=== PATIENT | female | born 1955 | race Caucasian/White ===

== ENCOUNTER → 2017-08-10 | Outpatient (CLI) | payer MEDICARE, MEDICAID ==
[~2017-08-10] MED LIST: AUGMENTIN XR 101 TER PO; NORCO 325 MG-51 TAB PO
--- NOTE | 2017-08-16 08:31 | RADIOLOGY REPORT PS360 ---
DIG MAMM-SCREEN NICK W/CAD CAD Screening COMPARISON: Digital mammograms 07/16/2015 and digital mammograms 07/29/2016 INDICATION: There is no personal or family history of breast cancer TECHNIQUE: Standard CC and MLO images were obtained. R2 CAD reviewed. FINDINGS: The breasts are closed primarily of fat with minimal scattered fibroglandular densities in each breast. There is a stable tiny benign-appearing nodular density upper outer quadrant right breast. There are couple benign-appearing calcifications in each breast.. There is no suspicious lesion and no suspicious microcalcifications. IMPRESSION: Stable exam with no suspicious lesion seen recommend yearly follow-up BI-RADS CATEGORY: 2_Benign RECOMMENDED FOLLOWUP: 12M 12 MONTH FOLLOW-UP (A letter has been sent to the patient regarding results of the study.)
== END ==
LOC: RAD 08-03 10:00
DX: Z12.31 Encounter for screening mammogram for malignant neoplasm of breast (principal)
CPT/HCPCS: G0202